=== PATIENT | male | born 1955 | race Caucasian/White ===

== ENCOUNTER 2016-12-03 08:20 | Day surgery (SDC) | payer BC ==
--- NOTE | 2016-11-21 13:35 | HP ---
Chief Complaint - Chief Complaint Date of Service: 11/21/16 Chief Complaint: screening colonoscopy History of Present Illness: 61 year old male who has not had a screening colonoscopy. No blood in stools, no abdominal complaints. - Patient's Past Medical History Patient History - Medical: No pertinent hx, Anxiety - family situation Patient History - Cardiac/Respiratory: No pertinent hx, Hypertension Patient History - Cancer: Prostate - 2009 radical prostatectomy Patient History - Surgical Procedures: Other - prostatectomy - Family History Mother Family History - Medical: Family History - Cardiac/Respiratory: CHF Father Family History - Medical: Additional Info: did not really know him - Social History Living Situations: spouse Abuse History: No History of abuse Psych History: No pertinent hx Smoking Status: Former smoker - for a couple years Have you smoked in the past 12 months: No Do you dip or chew tobacco: No Patient requests Smoking Cessation Consult: No Initiate information on Smoking Cessation: No Alcohol Use: other - 6 pack per day Drug Use: none - Immunizations Immunizations Up to Date: Yes Hx Pneumococcal Vaccination: No History of Influenza Vaccine: Yes Review Of Systems (GEN) - Review of Systems Generalized/Overall Review: Present: No Symptoms Reported EENTM: Present: Nose Congestion. Absent: Eye Pain, Blurred Vision, Double Vision, Throat Swelling Respiratory: Absent: Cough, Shortness of Breath Cardiac: Absent: Chest Pain, Edema Abdominal: Present: Diarrhea. Absent: Nausea, Abdominal Pain, Constipation, Bright blood from rectum Genitourinary: Present: Nocturia. Absent: Burning, Urgency Musculoskeletal: Present: Joint Pain, Other - ulnar nerve pain left arm. Absent : Back Pain, Joint Swelling, Muscle Pain Neurological: Present: Anxiety, Numbness, Parasthesia Skin: Absent: Dryness, Lesions Endocrine: Present: No Symptoms Reported Immunizations: IMMUNIZATION HX History of Influenza Vaccine Yes Hx Pneumococcal Vaccination No Allergies/Adverse Reactions: Allergies Allergy/AdvReac Type Severity Reaction Status Date / Time tramadol HCl [From [facility]] Allergy Other Verified 06/27/15 07:09 Home Medications: HOME MEDICATIONS Lisinopril [Prinivil] 40 mg PO DAILY 06/27/15 [Last Taken Unknown] Xanax 11/21/16 [Last Taken Unknown] Exam - Exam Vital Signs: Vital Signs - Last Taken Temp 36.9 Pulse 80 Resp 15 BP 155/85 11/21/2016 Pulse Ox Ht 6'2 Wt 240 #s Constitutional: Present: Alert, Oriented x3, Cooperative, No distress ENT Exam: Present: normal ENT inspection Eye Exam: bilateral eye: normal inspection Back Exam: Present: normal inspection Respiratory: Present: chest non-tender, lungs clear, normal breath sounds, no respiratory distress, no accessory muscle use Cardiovascular/Chest: Present: normal peripheral pulses, regular rate, rhythm, no murmur Abdomen: Present: Normal bowel sounds, soft, nontender, nondistended. Absent: rebound tenderness, positive Golden sign, high pitched bowel sounds /Rectal: Present: Exam deferred Extremity: Present: normal range of motion, non-tender Skin Exam: Present: normal color Neurologic: Present: no motor/sensory deficits, alert, normal mood/affect, oriented x 3 Appearance: Present: appropriate appearance, appropriate insight Eye contact: Present: cooperative, good eye contact Thoughts: Present: normal thought pattern Assessment/Plan - Narrative Narrative: 61 yo male who needs a screening colonoscopy. Has HTN and mild, situational anxiety. Proceed as an outpatient with a Suprep. RBIC discussed, including biopsy and/or polypectomy and low risk of perforation or bleeding. He understands and agrees. Scheduled for later in month. - Assessment/Plan (1) Screening for colon cancer Problem: Acute (2) HTN (hypertension) Problem: Chronic Qualifiers: Hypertension type: essential hypertension Qualified Code(s): I10 - Essential (primary) hypertension (3) Prostate cancer Problem: Resolved
[~2016-12-03 08:20] MED LIST: RINGERS SOLUTION,LACTATED 1,000 ML IV PRN
--- OUTSIDE RECORDS SUMMARY | 2016-12-03 08:23 | XMS REPORT | Continuity of Care Document ---
:1955 Author Organization [facility] ([facility]) Address [address] [place] [address] Phone [phone] Care Team Providers Name Role Phone Unavailable Primary Care Provider Unavailable Source Comments This disclosure is being made pursuant to the Care Everywhere program, applicable federal and state laws, and may not contain all informaitonavailable regarding this patient.[facility] ([facility]) Active Allergies and Adverse Reactions Not on File Current Medications Not on file Active Problems Not on file Social History Tobacco Use Types Packs/Day Years Used Date Never Assessed Plan of Care Health Maintenance Due Date Last Done Comments HCV Screening 1955 Hepatitis B Vaccine (1 of 3 - Primary Series) 1955 Tdap Vaccine 1965 Lipid Disorder Screening 1972 Td Vaccine 1972 Colonoscopy 10/28/2004 Prostate Cancer Screening 2004 Zoster Vaccine 2014 Influenza Vaccine: Seasonal (#1) 05/06/2016 Results from Last 3 Months Not on file
[2016-12-03] MEDS ORDERED: RINGERS SOLUTION,LACTATED 1,000 ML IV ONE (08:57)
[2016-12-03] MEDS ORDERED: RINGERS SOLUTION,LACTATED 1,000 ML IV PRN (10:30)
--- NOTE | 2016-12-03 10:36 | OR ---
Operative Report - Dictated Report Narrative: DATE OF PROCEDURE: 12/03/2016 PREOPERATIVE DIAGNOSIS: #1 Screening colonoscopy POSTOPERATIVE DIAGNOSIS: #1 Screening colonoscopy #2 polyp of cecum pending final pathology #3 small vascular/ectasia of cecum #4 sigmoid diverticulosis OPERATION: Colonoscopy with biopsy SURGEON: Gilbert Kennedy M.D., FACS ANESTHESIA : Srini Brady DIRECTOR OF [employer] sedation INDICATIONS: This is 61 year old male who presents for a screening colonoscopy. I have discussed the risks, benefits, indications, and contraindications for colonoscopy with the possibility of biopsy and/or polypectomy. He understands, agrees, and wishes to proceed. He has undergone a SUPREP and has tolerated it well. PROCEDURE: The patient was brought to the operating theater and placed into the left lateral decubitus position. The patient underwent sedation per anesthesia , and a digital rectal exam was performed. This was noted to be unremarkable. The patient was noted to have no internal or external hemorrhoids. The Olympus video colonoscope was introduced and advanced into the rectum. The rectum was normal in appearance. The scope was then advanced through the sigmoid, where some scattered diverticular disease was noted. The scope was then advanced to the cecum using standard reduction techniques. The appendiceal orifice was noted. The ileocecal valve was noted. The prep appeared to be excellent with a Kathleen prep score of 9. There was a small 3 mm polyp noted in the bases cecum, and it was removed completely with cold biopsy forceps. There is also a small superficial vascular ectasia in the cecum, and a picture was taken. No signs of recent or old bleeding. The scope was withdrawn slowly as the ascending, transverse, descending, and sigmoid colon were examined in a circumferential fashion. The scope was brought back into the rectum where the air was decompressed, and the scope was then removed. Withdrawal time was 12 minutes. POSTOPERATIVE CONDITION: The patient was awakened and taken to the ambulatory surgery center in good condition. No complications were encountered. FINDINGS: Scattered diverticulosis of the sigmoid colon, small polyp of the cecum, and a small vascular ectasia of the cecum. Specimens: 1 EBL: 0 The findings were discussed with the patient. I recommend a follow-up colonoscopy in 5 years for screening purposes pending the pathology report. [We will call in about 48 hours with the biopsy results.]
[2016-12-03 11:36] VITALS: BP 132/91
== END 2016-12-03 08:21 | disposition home or self-care (01) ==
LOC: AMB 08:20
PROVIDERS: ATTEND Surgery
PROC: 0DBH8ZX Excision of Cecum, Via Natural or Artificial Opening Endoscopic, Diagnostic (ICD-10-PCS; principal; 2016-12-03 10:00)
DX: Z12.11 Encounter for screening for malignant neoplasm of colon (principal); D12.0 Benign neoplasm of cecum; K57.30 Diverticulosis of large intestine without perforation or abscess without bleeding; I10 Essential (primary) hypertension; F41.9 Anxiety disorder, unspecified; Z87.891 Personal history of nicotine dependence; Z68.30 Body mass index [BMI] 30.0-30.9, adult